=== PATIENT | female | born 1995 | race Caucasian/White ===

== ENCOUNTER 2017-07-20 08:29 | Emergency (ER) | payer OTHER ==
[~2017-07-20] VITALS: Ht 160 cm; Wt 54.4 kg
== END 2017-07-20 13:21 | disposition home or self-care (01) ==
LOC: ER 08:29
DX: L02.415 Cutaneous abscess of right lower limb (principal); L02.31 Cutaneous abscess of buttock

== ENCOUNTER 2019-03-16 10:14 | Emergency (ER) | payer OTHER ==
[~2019-03-16] VITALS: Ht 157.5 cm; Wt 59.9 kg
== END 2019-03-16 14:53 | disposition home or self-care (01) ==
LOC: ER 10:14
DX: S00.83XA Contusion of other part of head, initial encounter (principal); W18.09XA Striking against other object with subsequent fall, initial encounter; Y93.89 Activity, other specified; Y92.89 Other specified places as the place of occurrence of the external cause; Y99.8 Other external cause status

== ENCOUNTER 2024-10-24 16:44 | Emergency (ER) | payer OTHER ==
[~2024-10-24] VITALS: Ht 157.5 cm; Wt 66.7 kg
[2024-10-24] MEDS ORDERED: 0.9 % SODIUM CHLORIDE 1,000 ML IV SCH (18:00)
[2024-10-24] MEDS ORDERED: KETOROLAC TROMETHAMINE 30 MG VIAL IV ONE ×2 (18:00→23:00)
[2024-10-24] MEDS ORDERED: ONDANSETRON HCL 2 MG/ML VIAL IV ONE (18:00)
[2024-10-24 18:17] LABS: BASO % 0.2 % (0.1-1.2); EOS # 0.02 (0.04-0.54); EOS % 0.2 % (0.7-7.0); LYMPH # 1.02 (1.18-3.74); LYMPH % 10.5 % (19.3-53.1); MEAN PLATELET VOLUME 9.50 fl (9.4-12.4); MONO # 0.48 (0.24-0.82); MONO % 5.0 % (4.7-12.5); NEUT # 8.11 (1.56-6.13); NEUT % 83.9 % (34.0-71.1); RED CELL DISTRIBUTION WIDTH 12.1 % (11.6-14.4)
[2024-10-24 18:46] LABS: ALT/SGPT 17.0 U/L (12-78); AST/SGOT 16.0 U/L (15-37); BILIRUBIN TOTAL 0.47 mg/dL (0.3-1.2); BUN CREA RATIO 11.0 (7.0-25.0); CREATININE SERUM 1.15 mg/dL (0.55-1.02); GFR 55.03; GLOBULINA 3.9 G/DL (2.4-3.5); GLUCOSE FASTING 138.0 mg/dL (65-100); OSMOLALITY SERUM 284.0 MOSM/KG (275-295)
[2024-10-24 19:03] LABS: URINE APPEARANCE Clear; URINE BILIRRUBIN Negative (NEGATIVE); URINE BLOOD Moderate; URINE COLOR Dark Yellow; URINE GLUCOSE Negative (NEGATIVE); URINE LEUKOCYTE Trace; URINE NITRATE Negative; URINE PROTEIN 30 (NEGATIVE); URINE UROBILINOGEN 1.0 E.U./dl
[2024-10-24 19:04] LABS: URINE BACTERIA 731.9 uL (0.0-1933); URINE EPITHELIAL CELLS 26.7 uL (0.0-38.8); URINE RBC 428.8 uL (0.0-20.8); URINE WBC 15.6 uL (0.0-23.2)
[2024-10-24 19:18] LABS: URINE CAST 0.87 uL (0.0-1.40); URINE KETONE >=160 (NEGATIVE)
[2024-10-24] MEDS ORDERED: TAMSULOSIN HCL 0.4 MG CAP PO ONE (23:00)
[2024-10-24] MEDS ORDERED: KETO10TA2 PO (23:03)
[2024-10-24] MEDS ORDERED: CIPRO500 MG PO (23:03)
[2024-10-24] MEDS ORDERED: TAMS0.4C PO (23:03)
[2024-10-24] MEDS ORDERED: ONDANSETRON ODT8 MG PO (23:03)
== END 2024-10-25 00:07 | disposition home or self-care (01) ==
LOC: ER 16:44
PROVIDERS: General Practice
DX: N13.30 Unspecified hydronephrosis (principal); N20.1 Calculus of ureter; N83.291 Other ovarian cyst, right side; N39.0 Urinary tract infection, site not specified